=== PATIENT | female | born 1990 | race Caucasian/White ===

== ENCOUNTER 2016-11-02 22:57 | Emergency (ER) | payer SELFPAY | END 2016-11-02 23:45 | disposition home or self-care (01) | LOC: ERS 22:57 | DX: L03.116 Cellulitis of left lower limb (principal); J45.909 Unspecified asthma, uncomplicated | CPT/HCPCS: 99283 ==

== ENCOUNTER 2017-06-12 07:03 | Observation (INO) | payer OTHER ==
[2017-06-12 07:52] VITALS: BMI 20.5
[2017-06-12] MEDS: Dextrose 5%-Lactated Ringers 1,000 ML IV SCH ×4 (08:30→12:45)
[2017-06-12 08:48] LABS: #Lymphocytes 1.4 thou/uL (1.20-3.40); #Monocytes 0.3 thou/uL (0.11-0.59); #Neutrophils 11.6 thou/uL (1.40-6.50); %Basophils 0.2 % (0.0-1.0); %Eosinophils 0.1 % (0.0-10.0); %Lymphocytes 10.2 % (21.0-51.0); %Neutrophils 87.4 % (42.0-75.0); Hemoglobin 11.2 g/dL (12.0-16.0); Mean Corpuscular HGB CONC 33.8 g/dL (32.0-36.0); Mean Corpuscular Hemoglobin 26.8 pg (27.0-31.0); Mean Corpuscular Volume 79.2 fl (81.0-99.0); Mean Platelet Volume 7.6 fL (7.4-10.4); Platelet Count 260 thou/uL (130-400); RBC Distribution Width 13.5 % (11.5-14.5); Red Blood Cell (RBC) Count 4.18 mill/uL (4.20-5.40); White Blood Cell (WBC) Count 13.3 thou/uL (4.8-10.8)
[2017-06-12] MEDS: Ondansetron HCl/PF 4 MG/2 ML Vial IVP PRN ×2 (09:09→15:17)
[2017-06-12 09:13] LABS: ALT (SGPT) 9 U/L (8-55); AST (SGOT) 14 U/L (5-34); Albumin 3.8 g/dL (3.5-5.0); Alkaline Phosphatase 90 U/L (40-150); Anion Gap 15 mmol/L (10-20); BUN (Urea Nitrogen) 10 mg/dL (7.0-18.7); Bilirubin, Total 0.4 mg/dL (0.2-1.2); Calc. Creatinine Clearance 126 mL/min (70-130); Calcium 9.1 mg/dL (7.8-10.44); Carbon Dioxide 20 mmol/L (22-29); Chloride 108 mmol/L (98-107); Estimated GFR-MDRD Greater than 90; Globulin 2.8 g/dL (2.4-3.5); Glucose 113 mg/dL (70-105); Potassium 3.6 mmol/L (3.5-5.1); Protein, Total 6.6 g/dL (6.0-8.3); Sodium 139 mmol/L (136-145)
--- NOTE | 2017-06-12 11:12 | PDOC.EVN ---
Event Note - Event Note Event Note: Nausea improved with Zofran and fluids. Remains afebrile. WBC= 13K, electrolytes are normal. Cont. IV fluids and Zofran.
[2017-06-12 13:11] LABS: Amnisure Test No Membranes Rupture (No Rupture)
[2017-06-12 13:12] LABS: Amnisure Internal Control QC ACCEPTABLE (ACCEPTABLE)
--- NOTE | 2017-06-12 15:43 | SS ---
DATE OF SERVICE: 06/12/2017 REGULAR PHYSICIAN: Shavonne Slater M.D. EVALUATING PHYSICIAN: Nasim Barrientos M.D. CHIEF COMPLAINT: Nausea and vomiting since 2:00 a.m. HISTORY OF PRESENT ILLNESS: Ms. Crisostomo is a 27-year-old -0-0-3 with an estimated date of confinement of 07/20/2017 who presents complaining of nausea and vomiting since 2:00 a.m. She does state that she has had irregular contractions associated with this, but denies vaginal bleeding or rupture of membranes. Her care has been with Dr. Shavonne Slater and has been reportedly uncomplicated. PAST OBSTETRICAL HISTORY: Includes three previous sections at term. PAST MEDICAL HISTORY: None. CURRENT MEDICATIONS: vitamins. PAST SURGICAL HISTORY: Three previous C-sections as above. ALLERGIES: No known allergies. SOCIAL HISTORY: Denies tobacco, alcohol, or drug use. REVIEW OF SYSTEMS: Nausea and vomiting as above. Denies fever, chills, ruptured membranes, vaginal bleeding or ill contacts at home. PHYSICAL EXAMINATION: VITAL SIGNS: Stable. She is afebrile. ABDOMEN: Soft, nontender. Abdomen is gravid. No vaginal bleeding is seen. heart rate tracing is reassuring. Intermittent irregular contractions are seen. ASSESSMENT: 1. A 35-week intrauterine . 2. Nausea, vomiting. 3. Three previous sections. No evidence of active labor. PLAN: At this time, the patient will be observed and given IV fluid and antiemetics. A CBC and chemistry is pending. Dr. Gonzalez has been notified and agrees with this plan. [facility]
--- NOTE | 2017-06-12 19:49 | PDOC.EVN ---
Event Note - Event Note Event Note: Reports feeling better, emesis x 1 last hour. VSS AF Fhts stable. No UCs seen. Will cont. hydration and antiemetics. Repeat CBC and Chem in AM.
[2017-06-13] MEDS: Dextrose 5%-Lactated Ringers 1,000 ML IV SCH
[2017-06-13] MEDS ORDERED: Ondansetron ODT 8 MG TAB SL PRN ×2 (02:34→09:30)
--- NOTE | 2017-06-13 06:35 | PDOC.EVN ---
Event Note - Event Note Event Note: No emesis since last PM. VSS AF Fhts stable. Advance diet this AM. Repeat CBC and Chem this AM.
[2017-06-13 06:52] LABS: #Eosinphils 0.2 thou/uL (0.0-0.7); #Lymphocytes 1.6 thou/uL (1.20-3.40); #Monocytes 0.4 thou/uL (0.11-0.59); #Neutrophils 6.3 thou/uL (1.40-6.50); %Basophils 0.2 % (0.0-1.0); %Eosinophils 2.9 % (0.0-10.0); %Lymphocytes 18.2 % (21.0-51.0); %Monocytes 4.8 % (0.0-10.0); %Neutrophils 73.9 % (42.0-75.0); Hemoglobin 9.1 g/dL (12.0-16.0); Mean Corpuscular HGB CONC 33.5 g/dL (32.0-36.0); Mean Corpuscular Hemoglobin 26.5 pg (27.0-31.0); Mean Corpuscular Volume 79.2 fl (81.0-99.0); Mean Platelet Volume 7.2 fL (7.4-10.4); Platelet Count 228 thou/uL (130-400); RBC Distribution Width 13.3 % (11.5-14.5); Red Blood Cell (RBC) Count 3.43 mill/uL (4.20-5.40); White Blood Cell (WBC) Count 8.6 thou/uL (4.8-10.8)
[2017-06-13 07:00] LABS: ALT (SGPT) 8 U/L (8-55); AST (SGOT) 11 U/L (5-34); Albumin 2.8 g/dL (3.5-5.0); Alkaline Phosphatase 65 U/L (40-150); Anion Gap 9 mmol/L (10-20); BUN (Urea Nitrogen) 4 mg/dL (7.0-18.7); Bilirubin, Total 0.3 mg/dL (0.2-1.2); Calc. Creatinine Clearance 139 mL/min (70-130); Carbon Dioxide 22 mmol/L (22-29); Chloride 108 mmol/L (98-107); Estimated GFR-MDRD Greater than 90; Globulin 2.4 g/dL (2.4-3.5); Glucose 97 mg/dL (70-105); Potassium 3.3 mmol/L (3.5-5.1); Protein, Total 5.2 g/dL (6.0-8.3); Sodium 136 mmol/L (136-145)
[2017-06-13] MEDS ORDERED: D5 1/2 NS w/20 mEq KCL 1,000 ML IV SCH (07:45)
[2017-06-13] MEDS ORDERED: Metoclopramide HCl 10 MG TAB PO SCH (11:30)
[2017-06-13 12:34] VITALS: BP 101/64
[2017-06-13 17:40] VITALS: TEMP 98.3
--- NOTE | 2017-06-14 00:53 | DIS ---
DATE OF ADMISSION: 06/13/2017 DATE OF DISCHARGE: 06/13/2017 DIAGNOSES: 1. Gastroenteritis, likely viral. 2. A 35-week intrauterine . 3. Nausea and vomiting. 4. Hypokalemia. PROCEDURES: 1. IV fluid hydration. 2. Potassium replacement. 3. Nonstress test. HOSPITAL COURSE: The patient was placed in observation on 04/12/2017 for nausea and vomiting. She r eceived antiemetics and IV fluids. She was noted to be hypokalemic and had IV potassium replacement. Following this, she was able to tolerate a small amount of food and fluids. She remained afebrile and had reactive nonstress test. She was meeting all milestones for discharge and was discharged neville e. DIET: Regular as tolerated. ACTIVITY: As tolerated. FOLLOWUP: Follow up with Dr. Slater as scheduled next week or before then if needed. INSTRUCTIONS: Call the clinic or come to the hospital for unable to tolerate p.o. for over 24 hours, heavy vaginal bleeding, leaking fluid, regular contractions, or other concerns.
== END 2017-06-13 17:15 | disposition home or self-care (01) ==
LOC: L&D/OP 07:03 → L&D 16:29 → UNDOADMOB 06-13 01:00 → L&D 06-13 01:00 → UNDODISOB 06-13 17:15
PROVIDERS: ADMIT Obstetrics & Gynecology; ATTEND Obstetrics & Gynecology
DX: O99.89 Other specified diseases and conditions complicating pregnancy, childbirth and the puerperium (principal); R11.2 Nausea with vomiting, unspecified; O99.613 Diseases of the digestive system complicating pregnancy, third trimester; K52.9 Noninfective gastroenteritis and colitis, unspecified; O99.283 Endocrine, nutritional and metabolic diseases complicating pregnancy, third trimester; E87.6 Hypokalemia; Z3A.35 35 weeks gestation of pregnancy; Z79.899 Other long term (current) drug therapy
CPT/HCPCS: 36415; 80053; 84112; 85025; 96361; 96365; 96366; 99285; G0378; J2405

== ENCOUNTER 2017-11-01 08:23 | Emergency (ER) | payer OTHER, SELFPAY ==
[2017-11-01 08:47] LABS: Bilirubin Negative (Negative); Blood, Urine Negative (Negative); Clarity CLOUDY (Clear); Glucose, Urine (Dipstick) Negative (Negative); Leukocyte Moderate (Negative); Nitrite Negative (Negative); Protein, Urine (Dipstick) Negative (Neg-Trace); Specific Gravity, Urine 1.019 (1.002-1.036); Urobilinogen 0.2 mg/dL (0.2-1.0)
[2017-11-01 08:48] LABS: Bacteria/HPF None Seen HPF (None Seen); Hyaline Casts/LPF 4-6 HYALINE CAST LPF (0-3 Hyaline); Pathc Cast-AUWi Flag 0.72 (0-2.49); Squamous Epithelial 0-3 HPF (0-3); WBC/HPF 21-50 HPF (0-3)
[2017-11-01 08:55] LABS: Pregnancy Test - Urine (BHCG) Negative (Negative); Pregu Control Background? CLEAR/WHITE (CLR/WHITE); Pregu Control Bar Appear? YES (CONTROL BAR); Specific Gravity 1.019 (1.002-1.036)
[2017-11-01 09:13] LABS: #Basophils 0.1 thou/uL (0.0-0.2); #Eosinphils 0.2 thou/uL (0.0-0.7); #Lymphocytes 2.2 thou/uL (1.20-3.40); #Monocytes 0.4 thou/uL (0.11-0.59); #Neutrophils 3.7 thou/uL (1.40-6.50); %Basophils 0.8 % (0.0-1.0); %Lymphocytes 33.9 % (21.0-51.0); %Monocytes 5.3 % (0.0-10.0); Hemoglobin 12.5 g/dL (12.0-16.0); Mean Corpuscular HGB CONC 32.9 g/dL (32.0-36.0); Mean Corpuscular Hemoglobin 26.7 pg (27.0-31.0); Mean Platelet Volume 7.6 fL (7.4-10.4); Platelet Count 312 thou/uL (130-400); RBC Distribution Width 15.3 % (11.5-14.5); Red Blood Cell (RBC) Count 4.67 mill/uL (4.20-5.40); White Blood Cell (WBC) Count 6.5 thou/uL (4.8-10.8)
[2017-11-01 09:32] LABS: ALT (SGPT) 27 U/L (8-55); AST (SGOT) 20 U/L (5-34); Albumin 4.3 g/dL (3.5-5.0); Alkaline Phosphatase 100 U/L (40-150); Anion Gap 10 mmol/L (10-20); BUN (Urea Nitrogen) 15 mg/dL (7.0-18.7); Bilirubin, Total 0.3 mg/dL (0.2-1.2); Calc. Creatinine Clearance 0 mL/min (70-130); Calcium 9.5 mg/dL (7.8-10.44); Carbon Dioxide 28 mmol/L (22-29); Chloride 106 mmol/L (98-107); Estimated GFR-MDRD 83; Globulin 3.3 g/dL (2.4-3.5); Glucose 95 mg/dL (70-105); Magnesium 2.1 mg/dL (1.6-2.6); Potassium 3.9 mmol/L (3.5-5.1); Protein, Total 7.6 g/dL (6.0-8.3); Sodium 140 mmol/L (136-145)
== END 2017-11-01 10:18 | disposition home or self-care (01) ==
LOC: ERS 08:23
DX: N39.0 Urinary tract infection, site not specified (principal); R20.2 Paresthesia of skin; J45.909 Unspecified asthma, uncomplicated
CPT/HCPCS: 36415; 80053; 81003; 81015; 81025; 83735; 84443; 85025; 99284

== ENCOUNTER 2021-02-17 09:57 | Emergency (ER) | payer SELFPAY ==
[2021-02-17 21:48] LABS: SARS-CoV-2 PCR by NAA DETECTED (NotDetected)
== END 2021-02-17 11:09 | disposition home or self-care (01) ==
LOC: ERS 09:57
DX: U07.1 COVID-19 (principal); J39.9 Disease of upper respiratory tract, unspecified; J45.909 Unspecified asthma, uncomplicated; Z87.891 Personal history of nicotine dependence
CPT/HCPCS: 99284; U0003; U0005

== ENCOUNTER 2021-12-26 12:14 | Emergency (ER) | payer OTHER, SELFPAY | END 2021-12-26 14:33 | disposition home or self-care (01) | LOC: ERS 12:14 | DX: J06.9 Acute upper respiratory infection, unspecified (principal); J45.909 Unspecified asthma, uncomplicated; Z87.891 Personal history of nicotine dependence | CPT/HCPCS: 71045 ==

== ENCOUNTER 2023-07-06 21:10 | Emergency (ER) | payer SELFPAY ==
[2023-07-06 22:33] LABS: Bacteria/HPF 4+ HPF (None Seen); Bilirubin Negative (Negative); Blood, Urine Trace (Negative); CAUTI Indications for Culture Pregnancy; Clarity Clear (Clear); Glucose, Urine (Dipstick) Normal (Negative); Ketone, Urine Trace mg/dL (Negative); Leukocyte Negative Leu/uL (Negative); Nitrite 2+ (Negative); Protein, Urine (Dipstick) 10 mg/dL (Neg-Trace); RBC/HPF 0-3 HPF (0-3); Specific Gravity, Urine 1.021 (1.002-1.036); Squamous Epithelial None Seen HPF (0-3); Urobilinogen Normal mg/dL (Less than 2); pH, Urine 6.5 (5.0-9.0)
[2023-07-06 22:34] LABS: Pregnancy Test - Urine (BHCG) Negative (Negative); Pregu Control Background? CLEAR/WHITE (CLR/WHITE); Pregu Control Bar Appear? YES (CONTROL BAR); Specific Gravity 1.021 (1.002-1.036); Urine Culture Reflex Yes Yes
[2023-07-06] MEDS ORDERED: Metoclopramide 10 MG/10 ML UDCUP ONE (22:39)
[2023-07-06] MEDS ORDERED: Ketorolac Tromethamine 30 MG (1 mL) VIAL ONE (22:39)
== END 2023-07-06 22:48 | disposition home or self-care (01) ==
LOC: ERS 21:10
DX: G43.909 Migraine, unspecified, not intractable, without status migrainosus (principal); Z87.891 Personal history of nicotine dependence
CPT/HCPCS: 81001; 81025; 87077; 87086; 87186; 93005; 96372; J1885